=== PATIENT | male | born 1980 | race Caucasian/White ===

== ENCOUNTER 2016-10-19 16:16 | Emergency (ER) | payer OTHER ==
[~2016-10-19] VITALS: Ht 177.8 cm; Wt 74.8 kg
--- NOTE | ~2016-10-19 | CR253 ---
[facility] A Service of [facility] RADIOLOGY TEXT RESULTS PATIENT: SHANA MENDEZ [place] [facility] [place] 78 UNIT #: [id number] AGE: [address]: Marlena Ely APRN SEX: M ORDER DR: [id number] [address] [address] [id number] E MR#: [id number] Acc #: [id number] NAME: SHANA MENDEZ. : 1980 SEX: M STUDY DATE/TIME: 10/19/2016 16:35 UNIT: SED ROOM: STUDY DESCRIPTION: CR Tibia and Fibula 2 Views Rt Attending Physician: Marlena Ely A.P.R.N. Ordering Physician: Marlena Springer A.P.R.N. Primary Care Physician: Primary Care Physician No MEDICAL IMAGING REPORT This report is preliminary unless electronic signature is present. EXAM Tib-fib on the right, 10/19/2016 INDICATION Laceration. Possible foreign body. CT with a TV screen while carrying it. Large gash. Symptoms began 30 minutes prior to arrival. TECHNIQUE Two views of the right tib-fib. No comparisons. FINDINGS There is bandage artifact. On the lateral view there is a 4 mm radiopaque density projecting over the anterior soft tissues of the distal third tibia. This may be artifact related to the bandage but a retained opaque foreign body could present similarly. Correlate with physical exam. The proximal tibia is not included in the field of view on the lateral projection. IMPRESSION Tiny linear opaque density anterior to the distal third tibia on the lateral projection. This may be artifactual and related to the overlying bandage but a retained opaque foreign body is in the differential. The examination is otherwise negative. Dictated by... Josh Yarbrough M.D. THIS IS AN ELECTRONICALLY VERIFIED REPORT Josh Yarbrough M.D. at 10/19/2016 11:34 PM [facility] A Service of [facility] RADIOLOGY TEXT RESULTS PATIENT: SHANA MENDEZ LOCATION: [facility] [place] 78 UNIT #: [id number] AGE: [address]: Marlena Ely APRN SEX: M ORDER DR: GARLAND/macarena TD: 10/19/2016 23:17 JOB #: [id number] MEDICAL IMAGING REPORT Page 1 of 1
[~2016-10-19 16:16] MED LIST: ALBUTEROL17 GM INH; DOXYCYCLINE HY100 M1 PO; MOTRIN600 MG PO; PHENERGAN W/CO120 ML PO; ROBAXIN500 MG PO; VOLTAREN75 MG PO
[2016-10-19] MEDS ORDERED: ADVIL200 M2 PO (16:24)
== END 2016-10-19 17:47 | disposition home or self-care (01) ==
LOC: SED 16:16
DX: S81.811A Laceration without foreign body, right lower leg, initial encounter (principal); F17.210 Nicotine dependence, cigarettes, uncomplicated; W25.XXXA Contact with sharp glass, initial encounter; Y92.009 Unspecified place in unspecified non-institutional (private) residence as the place of occurrence of the external cause
CPT/HCPCS: 12004; 73590; 99283